=== PATIENT | female | born 1970 | race Caucasian/White ===

== ENCOUNTER 2016-10-07 00:39 | Emergency (ER) | payer MEDICARE, MEDICAID ==
[~2016-10-07] VITALS: Ht 160 cm; Wt 74.5 kg
[~2016-10-07 00:39] MED LIST: ALBU18HF INH; ALPR1TAB7 PO; BUPR100T15 PO; FLUT16SP NS; GLAT40SY SQ; KEN25CR EXT; LEVO5TAB29 PO; METH20TA PO; MONT10TA23 PO; OMEP40CA36 PO; ONDA8TAB10 PO; PREG50CA PO; SERT100T9 PO
[2016-10-07 00:46] VITALS: BP 126/77; PULSE 85; RESP 16; O2SAT 100
--- NOTE | 2016-10-07 00:50 | ED.REPORT ---
HPI-Extremity Problem Lower Date of Service Oct 07, 2016 ED Provider: Lucien Elam DO A 46 year old with a history of multiple sclerosis, knee surgery x4, and hepatitis C presents to the ED complaining of right knee pain. The pt tripped two days ago while carrying a bucket of paint and landed on her knee. She sustained a small abrasion that has not caused her a significant amount of pain. However the pt is now experiencing "sharp, shooting pain" radiating from the knee in both directions. Nursing Notes Stated Complaint: RIGHT KNEE PAIN, FELL 2 DAYS AGO Chief Complaint: Extremity Trauma Nursing Notes Reviewed: Yes Allergies: Coded Allergies: Sulfa (Sulfonamide Antibiotics) (Verified Allergy, Severe, TONGUE SWELLS, 10/07/16) iodine (Verified Allergy, Severe, 10/07/16) latex (Verified Allergy, Severe, PLASTIC BANDAIDS,REDNESS,HIVES, 10/07/16) Penicillins (Verified Allergy, Unknown, TONGUE SWELLING, 10/07/16) Scheduled Bupropion (Bupropion) 100 Mg Tablet 100 MG PO BID Fluticasone Propionate (Fluticasone Propionate Nasal) 16 Gm [place].susp 2 SPRAY NS BID Glatiramer Acetate (Copaxone) 40 Mg/1 Ml Syringe 40 MG SQ 3xweekly Levocetirizine Dihydrochloride (Xyzal) 5 Mg Tablet 5 MG PO DAILY Methylphenidate (Ritalin) 20 Mg Tablet 20 MG PO BID Montelukast (Montelukast) 10 Mg Tablet 10 MG PO HS Omeprazole (Omeprazole) 40 Mg Capsule.dr 40 MG PO DAILY Pregabalin (Lyrica) 50 Mg Capsule 50 MG PO BID Sertraline HCl (Sertraline) 100 Mg Tablet 100 MG PO DAILY Scheduled PRN Albuterol Sulfate (Ventolin HFA Inhaler) 200 Puff/18 Gm Inhaler 2 PUFF INH Q4 PRN PRN For Wheezing Alprazolam (Alprazolam) 1 Mg Tablet 0.5-1 MG PO TID PRN PRN For Anxiety Ondansetron ODT (Ondansetron ODT) 8 Mg Tab.rapdis 4-8 MG PO QID PRN PRN For Nausea Triamcinolone Acet (Triamcinolone Acetonide Cream) 1 Applic/0.25 Gm Cr 1 APPLIC EXT BID PRN PRN skin irritation General Time Seen by MD: 00:50 Chief Complaint Knee injury right Hx Obtained From: Patient Arrived By: Walk-in Onset Occurred: 2 days ago Symptom Duration: Since onset Recent Healthcare: Recent doctor visit, Recent hospitalization Similar Sx Previous: No Past Medical History Past Medical History Notes: PCP: Napoleon Mccormick Past Medical History Hx kidney stones Pneumonia Hep C multiple sclerosis hiatal hernia anxiety Reports: Asthma Past Surgical History Excision of left thigh seroma and cavity on 07/31/2016 Knee surgery x4 Kidney stone Tubal ligation Ablation 11 Laparocolotomies for endometrioses Reports: Cholecystectomy Family History Noncontributory Smoking History Current Some Day Smoker Social History Alcohol Use: Denies alcohol use Drug Use: Denies drug use Other Social History: Good social support, Local resident Ambulatory Status Independent Review of Systems Constitutional: Denies: Fever Musculoskeletal: Reports: Extremity pain, Joint pain, Denies: Back pain Skin: Denies Rash Neurologic: Denies: Headache Complete sys rev & neg: except as marked. Respiratory: Denies: Non-productive cough Cardiovascular: Denies: Chest pain GI: Denies: Abdominal pain Physical Exam Initial Vital Signs Vital Signs (First) Date Time Temp Pulse Resp B/P Pulse Ox O2 Delivery O2 Flow Rate FiO2 10/07/16 00:46 36.3 85 16 126/77 100 Room Air Initial VS: Reviewed Lower Extremity / Pelvis / MS: No deformity soft tissue swelling of right knee erythema of anterior right knee stable small superficial abrasion, does not appear infected Ankle / Foot: Atraumatic, Full range of motion General/Constitutional: Awake, Alert Respiratory / Chest: Atraumatic, Breath sounds NL, Breath sounds = bilat, No respiratory distress Cardiovascular: Heart rate NL, Regular rhythm, Heart sounds NL Skin: No rash, Warm, Dry Neurologic: Oriented X3, Speech NL, No motor deficits, No sensory deficits Head / Eyes: Atraumatic, Normocephalic, PERRL, EOMI ENT: Atraumatic, Airway patent, Mucous membranes moist Neck: Atraumatic, Supple, Full range of motion Abdomen: Atraumatic Back: Atraumatic, Full range of motion Upper Extremity / MS: Atraumatic, Full range of motion Psychiatric: Affect NL, Mood NL Interpretation & Diagnostics Pulse Oximetry Interpretation Pulse Oximetry Interpretation: 100% on room air Pulse Oximetry: Pulse Ox normal X-Ray Interpretation Xray Interpretation: no acute findings X-Ray Ordered: Knee right Interpretation / Wet Read by: Wet read ED physician Procedures Procedure Notes: Knee immobilizer 02:02 Machine Baster under my direct supervision Right knee Neurovascularly intact post procedure, condition improved, tolerated procedure well, pt stable Re-Eval/Medical Decision Source of Hx: Old records Re-Evaluation/Progress : Time of Eval: 01:43 Patient Status: Condition improved Re-Evaluation/Progress Note: Pt rechecked, who is feeling significantly better. The plan for discharge is discussed. The pt understands and agrees with the plan. All questions are addressed at this time. Counseled Regarding: Diagnosis, Lab results, Need for follow-up, When/why to return to ED Discharge & Departure Impression: Primary Impression: Knee sprain Encounter type: initial encounter Involved ligament of knee: unspecified ligament Laterality: right Qualified Code: S83.91XA - Sprain of unspecified site of right knee, initial encounter Additional Impression: Knee contusion Encounter type: initial encounter Laterality: right Qualified Code: S80.01XA - Contusion of right knee, initial encounter Disposition: Home Discharge Condition All VS Reviewed: Yes Condition: Stable Patient Instructions: Contusions in Adults (ED), Knee Sprain (ED), Crutch Instructions (ED) Additional Instructions: Your x-ray was reassuring. Take 1-2 Percocet every 6 hours as needed for severe pain. Do not drink, drive, or consume acetaminophen while taking the Percocet. Wear the knee immobilizer and use crutches until you are seen in follow up. Follow up with your primary care physician and orthopedist next week for further evaluation. Return to the emergency department if you develop any new or worsening symptoms. Referrals: Napoleon Mccormick MD (PCP) Guido Almazan MD Attestation Portions of this note were transcribed by Nishi Landaverde. I, Dr. Elam personally performed the history, physical exam and medical decision-making; I reviewed and confirmed the accuracy of the information in the transcribed note. Signed by: Scott Rodriguez, 10/07/2016 and 01:58. copies to: Napoleon Mccormick MD; Guido Almazan MD, Todd P DO Oct 07, 2016 00:50 NISHI LANDAVERDE Oct 07, 2016 01:03
[2016-10-07] MEDS ORDERED: oxyCODONE-Acetamin 5-325 mg Tablet PO ONE (00:55)
[2016-10-07] MEDS ORDERED: _oxyCODONE/APAP 5-325 mg Tablet PO PRN (01:45)
[2016-10-07 02:37] VITALS: BP 110/74; PULSE 80; RESP 18; O2SAT 98
--- NOTE | 2016-10-07 10:05 | DRSVH ---
PROCEDURE: X-RAY RIGHT KNEE, THREE VIEWS ([id number]) INDICATIONS: fall and painful knee, anterior medial TECHNIQUE: 3 views of the knee were acquired. COMPARISON: None. FINDINGS: Bones: No fractures or dislocations. No suspicious bony lesions. Soft tissues: No joint effusion. No suspicious soft tissue calcifications. IMPRESSION: No displaced fracture seen. If there is continued pain, followup exam or additional camila ging such as MRI or CT could be performed for further assessment. Dictated by: Yury Pineda Shaheed Interpreted: Mariya Nunes MD on 10/07/2016 at 10:04 Transcribed by: ANTONIA on 10/07/2016 at 10:04 Approved by: Mariya Nunes M.D. on 10/07/2016 at 16:28
== END 2016-10-07 02:35 | disposition home or self-care (01) ==
LOC: SED 00:39
DX: S83.91XA Sprain of unspecified site of right knee, initial encounter (principal); S80.01XA Contusion of right knee, initial encounter; W01.0XXA Fall on same level from slipping, tripping and stumbling without subsequent striking against object, initial encounter; Y93.89 Activity, other specified; Y92.9 Unspecified place or not applicable; Y99.8 Other external cause status; F17.200 Nicotine dependence, unspecified, uncomplicated; Z86.69 Personal history of other diseases of the nervous system and sense organs; Z86.19 Personal history of other infectious and parasitic diseases; Z90.49 Acquired absence of other specified parts of digestive tract; Z88.0 Allergy status to penicillin; Z88.2 Allergy status to sulfonamides; Z91.040 Latex allergy status; Z91.048 Other nonmedicinal substance allergy status

== ENCOUNTER 2016-11-06 11:33 | Emergency (ER) | payer MEDICARE, MEDICAID ==
[~2016-11-06] VITALS: Ht 160 cm; Wt 76.4 kg
[2016-11-06 11:50] VITALS: BP 123/79; PULSE 103; RESP 18; O2SAT 100
--- NOTE | 2016-11-06 11:59 | ED.REPORT ---
HPI-Abd Pain F 40 and Over Date of Service Nov 06, 2016 ED Provider: History of Present Illness: started 2 days ago. no belly piercing, has umblicus hernia. primary care is [facility]. washed it, tried saline and tree constantine oil. pain staying the same 03/27 Nursing Notes Stated Complaint: BELLY BUTTON PAIN/BLEEDING Chief Complaint: General Complaint Nursing Notes Reviewed: Yes Allergies: Coded Allergies: Sulfa (Sulfonamide Antibiotics) (Verified Allergy, Severe, TONGUE SWELLS, 11/06/16) iodine (Verified Allergy, Severe, 11/06/16) latex (Verified Allergy, Severe, PLASTIC BANDAIDS,REDNESS,HIVES, 11/06/16) Penicillins (Verified Allergy, Unknown, TONGUE SWELLING, 11/06/16) Scheduled Bupropion (Bupropion) 100 Mg Tablet 100 MG PO BID Fluticasone Propionate (Fluticasone Propionate Nasal) 16 Gm [place].susp 2 SPRAY NS BID Glatiramer Acetate (Copaxone) 40 Mg/1 Ml Syringe 40 MG SQ 3xweekly Levocetirizine Dihydrochloride (Xyzal) 5 Mg Tablet 5 MG PO DAILY Methylphenidate (Ritalin) 20 Mg Tablet 20 MG PO BID Montelukast (Montelukast) 10 Mg Tablet 10 MG PO HS Omeprazole (Omeprazole) 40 Mg Capsule.dr 40 MG PO DAILY Pregabalin (Lyrica) 50 Mg Capsule 50 MG PO BID Sertraline HCl (Sertraline) 100 Mg Tablet 100 MG PO DAILY Scheduled PRN Albuterol Sulfate (Ventolin HFA Inhaler) 200 Puff/18 Gm Inhaler 2 PUFF INH Q4 PRN PRN For Wheezing Alprazolam (Alprazolam) 1 Mg Tablet 0.5-1 MG PO TID PRN PRN For Anxiety Ondansetron ODT (Ondansetron ODT) 8 Mg Tab.rapdis 4-8 MG PO QID PRN PRN For Nausea Triamcinolone Acet (Triamcinolone Acetonide Cream) 1 Applic/0.25 Gm Cr 1 APPLIC EXT BID PRN PRN skin irritation General Time Seen by MD: 11:57 Chief Complaint Abdominal pain, Other Hx Obtained From: Patient Sudden in Onset?: No Location: : Periumbilical Past Medical History Past Medical History Notes: PCP: Napoleon Mccormick Past Medical History Hx kidney stones Pneumonia Hep C multiple sclerosis hiatal hernia anxiety Reports: Asthma Past Surgical History Excision of left thigh seroma and cavity on 07/31/2016 Knee surgery x4 Kidney stone Tubal ligation Ablation 11 Laparocolotomies for endometrioses Reports: Cholecystectomy Family History Noncontributory Smoking History Current Some Day Smoker Social History Alcohol Use: Denies alcohol use Drug Use: Denies drug use Other Social History: Good social support, Local resident Occupation live with daughter no work or school Ambulatory Status Independent Review of Systems Basic Review of Systems Eyes: Vision NL, No discharge Skin: No bruising, No rash, No itch Psychiatric: Normal thought content Physical Exam Vital Signs Vital Signs (First) Date Time Temp Pulse Resp B/P Pulse Ox O2 Delivery O2 Flow Rate FiO2 11/06/16 11:50 36.4 103 18 123/79 100 Room Air Initial VS: Reviewed, Vital signs normal Head / Eyes: Atraumatic, Normocephalic, PERRL ENT: Mucous membranes moist, Conjunctiva normal, No scleral icterus Neck: Supple, Non-tender, Full range of motion Lymphatic: No lymphadenopathy Extremities: Vascular intact, Neuro intact, No swelling, No tenderness Skin: Warm, Dry, No cyanosis Neurologic: Alert, Oriented, Nonfocal Psychiatric: Mood/affect normal, Behavior normal, Normal thought content General/Constitutional: Awake, Alert, No acute distress, Well appearing, Well developed, Well hydrated, Well nourished, Cooperative, Not toxic appearing Respiratory / Chest: Atraumatic, Breath sounds NL, Breath sounds = bilat, No respiratory distress, No rales Cardiovascular: Heart rate NL, Regular rhythm, Heart sounds NL, No gallop Abdomen: Atraumatic, Soft, Non-tender, McBurney's non-tender umbulicus is deep, about 2 cm, yellow discharge noted Back: Atraumatic, Inspection NL, Full range of motion, Painless range of motion Interpretation & Diagnostics Lab Results Interpretation Result Diagram: 11/06/16 1312 11/06/16 1312 Test 11/06/16 12:25 11/06/16 13:12 Hold Urine Received (Received) White Blood Count 6.3th/mm3 (3.8-10.1) Red Blood Count 4.64mil/mm3 (3.90-5.20) Hemoglobin 13.5g/dL (12.0-15.6) Hematocrit 41.0% (35.0-46.0) Mean Corpuscular Volume 88.4fL (81-100) Mean Corpuscular Hemoglobin 29.1pg (27.0-35.0) Mean Corpuscular Hemoglobin Concent 32.9% (32.0-37.0) Red Cell Distribution Width 13.8% (12.3-15.4) Platelet Count 197bil/L (150-400) Neutrophils (%) (Auto) 60.5% (40-74) Lymphocytes (%) (Auto) 30.0% (14-46) Monocytes (%) (Auto) 7.0% (4-12) Eosinophils (%) (Auto) 1.8% (0-5) Basophils (%) (Auto) 0.5% (0-3) Sodium Level 136mEq/L (134-144) Potassium Level 3.7mEq/L (3.5-5.2) Chloride Level 100mEq/L (97-108) Carbon Dioxide Level 21mmol/L (18-29) Blood Urea Nitrogen 16mg/dL (6-24) Creatinine 0.52mg/dL (0.57-1.00) Estimat Glomerular Filtration Rate 183mL/min (>59) Glucose Level 86mg/dL (60-99) Calcium Level 9.2mg/dL (8.5-10.1) Total Bilirubin 0.3mg/dL (0.0-1.2) Aspartate Amino Transf (AST/SGOT) 15U/L (0-50) Alanine Aminotransferase (ALT/SGPT) 15U/L (0-32) Alkaline Phosphatase 53U/L (25-150) Total Protein 6.4g/dL (6.4-8.4) Albumin 4.3g/dL (3.4-5.0) Hold Larios Top Tube Received (Received) US Focused non-OB Pelvis PROCEDURE: US HERNIA ABDOMINAL INDICATIONS: bleey buton pain and bleeding TECHNIQUE: Real-time focused scanning was performed of the abdomen, with image documentation. COMPARISON: None. FINDINGS: No periumbilical hernia or other ventral wall abnormality seen sonographically. IMPRESSION: No hernia. Dictated by: Yury GALINDO Interpreted: Daxa Piper MD on 11/06/2016 at 15:46 Re-Eval/Medical Decision Med Decision/Clinical Course 46 year old female presents for possible infection of umblicus. Labs are normal with ultrasound not identifying any abnormality around umblicus. No sign of appendicitis, constipation or peritonitis Discharge & Departure Primary Impression: Cellulitis, umbilical Disposition: Home Patient Instructions: Cellulitis (ED) Additional Instructions: Your white blood cell count is normal. The ultrasound does not show any hernia. The exam indicates you have a deep belly button. It may be a fungal infection infection or it may be a skin infection. Start diflucan 200 mg daily for 7 days. Use keflex 500 mg 3 times a day for 7 days. Avoid moisture in the navel. Use ibuprofen for any discomfort. Please follow with primary care for a recheck. REturn with any concerns. Referrals: Napoleon Mccormick MD (PCP) EDSupervising Provider for APC: Israel Tineo MD copies to: Napoleon Mccormick MD, Sue ARNP Nov 06, 2016 11:59
[2016-11-06 13:22] LABS: BASOPHILS % (AUTO) 0.5 % (0-3); EOSINOPHILS % (AUTO) 1.8 % (0-5); Mean Corpuscular Hemoglobin 29.1 pg (27.0-35.0); Mean Corpuscular Volume 88.4 fL (81-100); NEUTROPHILS % (AUTO) 60.5 % (40-74); Platelet Count 197 bil/L (150-400)
[2016-11-06 14:04] VITALS: BP 125/75; PULSE 94; RESP 15; O2SAT 98
--- NOTE | 2016-11-06 15:46 | DRSVH ---
PROCEDURE: US HERNIA ABDOMINAL INDICATIONS: Periumbilical pain and bleeding. TECHNIQUE: Real-time focused scanning was performed of the abdomen, with image documentation. COMPARISON: None. FINDINGS: Ultrasound was performed in the area of interest. No periumbilical hernia or other ventral wall abnormality seen sonographically. IMPRESSION: No ultrasound findings to explain periumbilical pain and bleeding. Dictated by: Yury GALINDO Interpreted: Daxa Piper MD on 11/06/2016 at 15:46 Transcribed by: MYRANDA on 11/06/2016 at 15:46 Approved by: Daxa Piper M.D. on 11/06/2016 at 22:08
== END 2016-11-06 14:02 | disposition home or self-care (01) ==
LOC: SED 11:33
DX: L03.316 Cellulitis of umbilicus (principal); J45.909 Unspecified asthma, uncomplicated; F17.200 Nicotine dependence, unspecified, uncomplicated; Z87.442 Personal history of urinary calculi; Z87.01 Personal history of pneumonia (recurrent); Z90.49 Acquired absence of other specified parts of digestive tract; Z88.2 Allergy status to sulfonamides; Z91.041 Radiographic dye allergy status; Z88.0 Allergy status to penicillin

== ENCOUNTER 2016-11-26 12:57 | Emergency (ER) | payer MEDICARE, MEDICAID ==
[~2016-11-26] VITALS: Ht 160 cm; Wt 76.4 kg
[2016-11-26 13:11] VITALS: BP 102/73; PULSE 87; RESP 16; O2SAT 100
[2016-11-26] MEDS ORDERED: Ondansetron 2 mg/mL 2 mL Inj ONE (13:33)
[2016-11-26 13:38] LABS: BASOPHILS % (AUTO) 0.1 % (0-3); EOSINOPHILS % (AUTO) 0.2 % (0-5); MONOCYTES % (AUTO) 2.2 % (4-12); Mean Corpuscular Hemoglobin 29.2 pg (27.0-35.0); Mean Corpuscular Volume 86.9 fL (81-100); NEUTROPHILS % (AUTO) 94.4 % (40-74); Platelet Count 230 bil/L (150-400)
[2016-11-26 13:52] LABS: Magnesium 2.1 mg/dL (1.6-2.6)
[2016-11-26] MEDS ORDERED: Ondansetron 2 mg/mL 2 mL Inj IVPUSH ONE ×2 (14:15→16:15)
--- NOTE | 2016-11-26 14:20 | ED.REPORT ---
HPI-Abd Pain F 40 and Over Date of Service Nov 26, 2016 ED Provider: Juan Diego Paige MD Pt is a 46 year old female with a hx of asthma and MS presenting to the ED via EMS complaining of nausea and vomiting onset around 0500 today, and a couple of syncopal episodes. Associated symptoms include diarrhea, diaphoresis, chills, subjective fever. Denies any rash. She reports that she was woken up by her symptoms this morning. She reports many episodes of vomiting and diarrhea. Pt was feeling fine until this morning. Pt was on antibiotics about 3 weeks ago for periumbilical cellulitis. Nursing Notes Stated Complaint: NAUSEA/VOMITING/SYNCOPAL EPISODE Chief Complaint: Female Abdominal Pain Nursing Notes Reviewed: Yes (Tencent, Dreamise not reconciled) Allergies: Coded Allergies: Sulfa (Sulfonamide Antibiotics) (Verified Allergy, Severe, TONGUE SWELLS, 11/26/16) iodine (Verified Allergy, Severe, 11/26/16) latex (Verified Allergy, Severe, PLASTIC BANDAIDS,REDNESS,HIVES, 11/26/16) Penicillins (Verified Allergy, Unknown, TONGUE SWELLING, 11/26/16) Scheduled Bupropion (Bupropion) 100 Mg Tablet 100 MG PO BID Fluticasone Propionate (Fluticasone Propionate Nasal) 16 Gm [place].susp 2 SPRAY NS BID Glatiramer Acetate (Copaxone) 40 Mg/1 Ml Syringe 40 MG SQ 3xweekly Levocetirizine Dihydrochloride (Xyzal) 5 Mg Tablet 5 MG PO DAILY Methylphenidate (Ritalin) 20 Mg Tablet 20 MG PO BID Montelukast (Montelukast) 10 Mg Tablet 10 MG PO HS Omeprazole (Omeprazole) 40 Mg Capsule.dr 40 MG PO DAILY Pregabalin (Lyrica) 50 Mg Capsule 50 MG PO BID Sertraline HCl (Sertraline) 100 Mg Tablet 100 MG PO DAILY Scheduled PRN Albuterol Sulfate (Ventolin HFA Inhaler) 200 Puff/18 Gm Inhaler 2 PUFF INH Q4 PRN PRN For Wheezing Alprazolam (Alprazolam) 1 Mg Tablet 0.5-1 MG PO TID PRN PRN For Anxiety Hydromorphone (Hydromorphone) 2 Mg Tablet 2-4 MG PO q4-6H PRN PRN Pain Loperamide (Loperamide) 2 Mg Tablet 2 MG PO Q4H PRN PRN For Diarrhea or Loose Stool Take one tablet after each episode of diarrhea up to 6 tabs in 24 hours Ondansetron ODT (Ondansetron ODT) 8 Mg Tab.rapdis 4-8 MG PO QID PRN PRN For Nausea Ondansetron ODT (Ondansetron ODT) 8 Mg Tab.rapdis 8 MG PO Q4H PRN PRN For Nausea Triamcinolone Acet (Triamcinolone Acetonide Cream) 1 Applic/0.25 Gm Cr 1 APPLIC EXT BID PRN PRN skin irritation General Time Seen by MD: 14:10 Chief Complaint Diarrhea severe, Vomiting severe Hx Obtained From: Patient, EMS Arrived By: Ambulance Sudden in Onset?: Yes Onset Occurred: 9 - 12 hours ago Symptom Duration: Since onset Progression since Onset: Constant Location: : Diffuse Quality: Painful Severity: Current: Severe Severity: Maximum: Severe Recent Healthcare: No recent doctor visit, No recent hospitalization Similar Sx Previous: No Past Medical History Past Medical History Notes: PCP: Napoleon Mccormick Past Medical History Hx kidney stones Pneumonia Hep C multiple sclerosis hiatal hernia anxiety Reports: Asthma Past Surgical History Excision of left thigh seroma and cavity on 07/31/2016 Knee surgery x4 Kidney stone Tubal ligation Ablation 11 Laparocolotomies for endometrioses Reports: Cholecystectomy Family History Noncontributory Smoking History Current Some Day Smoker Social History Alcohol Use: Denies alcohol use Drug Use: Denies drug use Other Social History: Good social support, Local resident Occupation live with daughter no work or school Ambulatory Status Independent Review of Systems Constitutional: Reports: Chills, Fever GI: Reports: Diarrhea, Nausea, Vomiting Complete sys rev & neg: except as marked. Skin: Reports Diaphoresis, Denies Rash Physical Exam Vital Signs Vital Signs (First) Date Time Temp Pulse Resp B/P Pulse Ox O2 Delivery O2 Flow Rate FiO2 11/26/16 13:11 36.9 87 16 102/73 100 Room Air Initial VS: Reviewed, Vital signs normal Head / Eyes: Atraumatic ENT: Mucous membranes moist, Conjunctiva normal, No scleral icterus Neck: Supple, Non-tender, Full range of motion Extremities: Vascular intact, Neuro intact, No swelling, No tenderness Skin: Warm, Dry, No cyanosis Neurologic: Alert, Oriented, Nonfocal Psychiatric: Mood/affect normal, Behavior normal, Normal thought content General/Constitutional: Awake, Alert Holding an emesis bag. Appears uncomfortable and mildly dehydrated. Respiratory / Chest: Breath sounds NL, Breath sounds = bilat, No respiratory distress, No rales, No rhonchi, No wheezing, No stridor Cardiovascular: Heart rate NL, Regular rhythm, Heart sounds NL, Peripheral circulation NL Abdomen: Soft, Non-tender, McBurney's non-tender, No guarding, No rebound, BS normoactive, No distention, No hernia, No palpable mass, No pulsatile mass Interpretation & Diagnostics Lab Results Interpretation Result Diagram: 11/26/16 1335 11/26/16 1335 Test 11/26/16 13:35 White Blood Count 13.4th/mm3 (3.8-10.1) Red Blood Count 5.34mil/mm3 (3.90-5.20) Hemoglobin 15.6g/dL (12.0-15.6) Hematocrit 46.4% (35.0-46.0) Mean Corpuscular Volume 86.9fL (81-100) Mean Corpuscular Hemoglobin 29.2pg (27.0-35.0) Mean Corpuscular Hemoglobin Concent 33.6% (32.0-37.0) Red Cell Distribution Width 13.5% (12.3-15.4) Platelet Count 230bil/L (150-400) Neutrophils (%) (Auto) 94.4% (40-74) Lymphocytes (%) (Auto) 2.8% (14-46) Monocytes (%) (Auto) 2.2% (4-12) Eosinophils (%) (Auto) 0.2% (0-5) Basophils (%) (Auto) 0.1% (0-3) Sodium Level 136mEq/L (134-144) Potassium Level 4.2mEq/L (3.5-5.2) Chloride Level 100mEq/L (97-108) Carbon Dioxide Level 20mmol/L (18-29) Blood Urea Nitrogen 20mg/dL (6-24) Creatinine 0.55mg/dL (0.57-1.00) Estimat Glomerular Filtration Rate 172mL/min (>59) Glucose Level 122mg/dL (60-99) Calcium Level 9.3mg/dL (8.5-10.1) Magnesium Level 2.1mg/dL (1.6-2.6) Total Bilirubin 0.5mg/dL (0.0-1.2) Aspartate Amino Transf (AST/SGOT) 25U/L (0-50) Alanine Aminotransferase (ALT/SGPT) 27U/L (0-32) Alkaline Phosphatase 60U/L (25-150) Total Protein 7.7g/dL (6.4-8.4) Albumin 4.7g/dL (3.4-5.0) Lipase 27U/L (13-60) Lab Results Interpretation: CBC mild leukocytosis CMP normal She did not provide a stool sample for testing Re-Eval/Medical Decision Med Decision/Clinical Course This is a 46-year-old female on immunosuppressants secondary to history of multiple sclerosis who presents complaining of vomiting and diarrhea. She reports multiple people in her family fall coming a little vomiting and diarrheal illness they were covering, but she got sick-but she has had more persistent and severe symptoms than they have. Reports abdominal cramping, multiple episodes of vomiting and diarrhea. She has not had a fever. She has no travel history, she was treated with antibiotics for umbilical cellulitis in recent months, but has no other risk factors for C. difficile. On exam she does appear uncomfortable, has complaints of cramping in her abdomen is soft and nontender. She is not febrile, she is not toxic. IV is placed and she received pain and nausea medicines with marked improvement. Abdomen remained soft and nontender. She has a mild leukocytosis that is nonspecific. However she started feeling much better and is able to take loperamide. She did not provide a stool sample in the department for testing, given she is on immunosuppressive I initially ordered a stool panel, given the history that multiple other family members have been ill with a vomiting and diarrheal illness, that makes C. difficile and other significant pathology less likely. She is responding to therapy here and is requesting discharge, I think this is reasonable. I am not finding indication for emergent indicate imaging or hospitalization or empiric antibiotic therapy at this time. The patient is being discharged with some ondansetron and loperamide, she would like a few pain medicine and requests hydromorphone that she has had before, several minute total of #10 tabs. Routine precautions and written and reviewed. Patient is discharged much improved condition. This times additional finding of an acute surgical, or acute bacterial etiology. The vomiting and diarrhea are needed nonspecific, and symptomatic therapy at home is appropriate. Source of Hx: Old records Re-Evaluation/Progress #1: Time of Eval: 16:10 Patient Status: Condition improved Re-Evaluation/Progress Note: Pt still nauseated and in pain but her symptoms are slightly improved. Re-Evaluation/Progress #2: Time of Eval: 17:00 Patient Status: Condition improved Re-Evaluation/Progress Note: Discussed plan for discharge. Pt understands and agrees. Differential Diagnosis: Negative: Abdominal aortic aneurysm, Acute abdominal pain, Acute coronary syndrome, Contusion abdominal wall, Ectopic preg ruptured, Ectopic , Esophageal rupture, Hepatitis, Myocardial infarction, Stab wound abdomen, Urinary tract infection Counseled Regarding: Diagnosis, Lab results, Need for follow-up, When/why to return to ED Discharge & Departure Primary Impression: Vomiting and diarrhea Disposition: Home Discharge Condition All VS Reviewed: Yes Condition: Improved Additional Instructions: 1. Rest. 2. Your blood tests were normal. 3. Take ondansetron 8 mg-lead dissolve underneath some-up to every 4 hours if needed for nausea. 4. Take loperamide 2 mg one tablet after each episode of diarrhea up to 6 tabs in 24 hours. 5. Take hydromorphone (Dilaudid) 2 mg 1-2 tabs up to every 6 hours if needed for pain/cramping. Use sparingly. Note this is a potent narcotic and causes drowsiness. No driving for at least 4-6 hours after taking. 6. Concerns are suspected to be improving over the next roughly 24-36 hours, return to the emergency department if no worsening symptoms occur. Referrals: Napoleon Mccormick MD (PCP) Scribe Attestation Portions of this note were transcribed by Deena Ashby. I, Dr. Paige personally performed the history, physical exam and medical decision-making; I reviewed and confirmed the accuracy of the information in the transcribed note. Signed by: Scott Cordero, 11/26/2016 at 0927. copies to: Napoleon Mccormick MD, Matthew F MD Nov 26, 2016 14:20 DEENA ASHBY Nov 26, 2016 14:29
[2016-11-26] MEDS: HYDROmorphone 0.5 mg/0.5 mL iSecure Syringe IVPUSH PRN ×2 (14:32→15:47)
[2016-11-26] MEDS ORDERED: 0.9% Sodium Chloride 1,000 ML IV ONE (14:35)
[2016-11-26] MEDS ORDERED: ProchlorPERazine 5 mg/mL 2 mL Inj IVPUSH ONE (14:35)
[2016-11-26] MEDS ORDERED: HYDROmorphone 0.5 mg/0.5 mL iSecure Syringe IVPUSH PRN (16:15)
[2016-11-26] MEDS ORDERED: LOPE2TAB32 PO (17:12)
[2016-11-26] MEDS ORDERED: ONDA8TAB10 PO (17:12)
[2016-11-26] MEDS ORDERED: HYDR2TAB28 PO (17:12)
[2016-11-26 17:35] VITALS: BP 107/60; PULSE 102; RESP 16; O2SAT 99
== END 2016-11-26 17:37 | disposition home or self-care (01) ==
LOC: EDBD 12:57 → EDUNIT# 12:57 → SED 12:57
DX: R11.10 Vomiting, unspecified (principal); R19.7 Diarrhea, unspecified; F17.200 Nicotine dependence, unspecified, uncomplicated; Z79.899 Other long term (current) drug therapy; Z88.0 Allergy status to penicillin; Z88.1 Allergy status to other antibiotic agents; Z91.040 Latex allergy status
CPT/HCPCS: 36415; 80053; 81025; 83690; 83735; 85025; 96361; 96374; 96375; 96376; 99285; J0780; J1170; J1200; J2405; J7030

== ENCOUNTER 2017-03-19 10:07 | Day surgery (SDC) | payer MEDICARE, MEDICAID ==
[~2017-03-19] VITALS: Ht 160 cm; Wt 76.9 kg
[2017-03-19] VITALS (12 sets, daily range): BP systolic 92–119; BP diastolic 44–59; PULSE 66–95; RESP 9–20; O2SAT 94–100
--- NOTE | 2017-03-19 08:22 | PCM.HPANE ---
Patient Data Surgeon Admitting Provider: Attending Provider:Magan Erazo MD Primary Care Physician:Napoleon Mccormick MD Other Provider:[facility] Reason for Visit Left Thigh Mass Ht/WT & BMI Height (Feet): 5 Height (Inches): 2 Weight (Kilograms): 77.1 Body Mass Index 31.00 Allergies Coded Allergies: Sulfa (Sulfonamide Antibiotics) (Verified Allergy, Severe, TONGUE SWELLS, 03/14/17) iodine (Verified Allergy, Severe, 03/14/17) latex (Verified Allergy, Severe, PLASTIC BANDAIDS,REDNESS,HIVES, 03/14/17) Penicillins (Verified Allergy, Unknown, TONGUE SWELLING, 03/14/17) Past Anesthesia History Anesthesia History: Denies:: Abnormal Airway, Anesthesia Reactions (had vomiting post epidural), Difficult Intubation, Fam Anesthesia Reaction, Fam Malignant Hypertherm, Malignant Hyperthermia Diabetes History Hx Diabetes?: No MRSA MRSA: No Medications Hypertension Medication: No Home Meds Incl Beta Sofya: No Reported Medications Levocetirizine Dihydrochloride (Xyzal)5 Mg Tablet5 Mg PO 03/14/17 Albuterol Sulfate (Ventolin HFA Inhaler)200 Puff/18 Gm Inhaler1 Puff INH Q4 PRN For Wheezing #1 INHALER Ref 0 03/14/17 Triamcinolone Acet (Triamcinolone Acetonide Cream)1 Applic/0.25 Gm Cr1 Applic EXT BID #60 GM Ref 0 03/14/17 Sertraline HCl (Sertraline)100 Mg Sygqmb613 Mg PO DAILY 30 Days Ref 0 03/14/17 Dextroamphetamine/Amphetamine (Adderall)10 Mg Tyyfrg14 Mg PO DAILY Ref 0 03/14/17 Montelukast 10 Mg Cawwby44 Mg PO HS Ref 0 03/14/17 Fluticasone Propionate (Flonase Allergy Relief)50 Mcg/Actuation [place].susp9.9 Ml NS 03/14/17 Cyclobenzaprine 5 Mg Tablet5 Mg PO TID PRN Spasm 03/14/17 Glatiramer Acetate (Copaxone)40 Mg/1 Ml Gcyouyq09 Mg SQ 03/14/17 Bupropion 100 Mg Dgqogo870 Mg PO BID Ref 0 03/14/17 Alprazolam 1 Mg Tablet1 Mg PO TID PRN For Anxiety Ref 0 03/14/17 Discontinued Reported Medications Esomeprazole Magnesium 40 Mg Capsule.dr40 Mg PO 03/14/17 Levocetirizine Dihydrochloride (Xyzal)5 Mg Tablet5 Mg PO DAILY 07/29/16 Albuterol Sulfate (Ventolin HFA Inhaler)200 Puff/18 Gm Inhaler2 Puff INH Q4 PRN For Wheezing #1 INHALER Ref 0 07/29/16 Triamcinolone Acet (Triamcinolone Acetonide Cream)1 Applic/0.25 Gm Cr1 Applic EXT BID PRN skin irritation #60 GM Ref 0 07/29/16 Sertraline HCl (Sertraline)100 Mg Fxxdbh009 Mg PO DAILY 30 Days Ref 0 07/29/16 Methylphenidate (Ritalin)20 Mg Cmfhkh83 Mg PO BID Ref 0 07/29/16 Omeprazole 40 Mg Capsule.dr40 Mg PO DAILY Ref 0 07/29/16 Montelukast 10 Mg Rsscru38 Mg PO HS Ref 0 07/29/16 Pregabalin (Lyrica)50 Mg Ywmgiqx16 Mg PO BID 30 Days Ref 0 07/29/16 Fluticasone Propionate (Fluticasone Propionate Nasal)16 Gm [place].susp2 [place] NS BID #16 GM Ref 0 07/29/16 Glatiramer Acetate (Copaxone)40 Mg/1 Ml Kqcwcst56 Mg SQ 3xweekly 07/29/16 Bupropion 100 Mg Isbpub438 Mg PO BID Ref 0 07/29/16 Alprazolam 1 Mg Tablet0.5-1 Mg PO TID PRN For Anxiety Ref 0 07/29/16 Discontinued Scripts Hydromorphone 2 Mg Tablet2-4 Mg PO q4-6H PRN Pain #10 TABLET Ref 0 Prov:Juan Diego Paige MD 11/26/16 Loperamide 2 Mg Tablet2 Mg PO Q4H PRN For Diarrhea or Loose Stool #10 TABLET Take one tablet after each episode of diarrhea up to 6 tabs in 24 hours Prov:Juan Diego Paige MD 11/26/16 Ondansetron ODT 8 Mg Tab.rapdis8 Mg PO Q4H PRN For Nausea #10 TABLET Prov:Juan Diego Paige MD 11/26/16 Ondansetron ODT 8 Mg Tab.rapdis4-8 Mg PO QID PRN For Nausea #20 TABLET Prov:Phillip Dickens MD 08/09/16 History History of ENT Problems?: Yes HEENT History: Positive for:: Sinus Problem (environmental allergies) Denies:: Abnormal Airway Cataracts Difficult Intubation Dysphagia Glaucoma Hearing Problem TMJ Denture Type: None Teeth Condition: Within Normal Limits Hx of Heart Problems?: No Cardiovascular History: Denies:: AICD Abdominal Aortic Aneurism Atrial Fibrillation Cardiac Surgery Chest Pain Congestive Heart Failure Coronary Artery Disease Edema Heart Murmur Hypertension Irregular Heartbeat Pacemaker Rheumatic Fever Thrombophlebitis Valvular Heart Disease Hx of Respiratory Problem?: Yes Respiratory History: Positive for:: Asthma Cough (chronic associated with asthma) Pneumonia (past hx of) Use of Inhalers / NEBS (Ventilin) Denies:: COPD Chest Surgery Dyspnea Emphysema Hemoptysis Oxygen Administration Pulmonary Embolism Tuberculosis Use of C-PAP Machine Hx Neurologic Problems?: Yes Neurological History: Positive for:: Dizziness Headaches Multiple Sclerosis (last neuro note 09/2015) Denies:: Alzheimer's Disease CVA Dementia Parkinson's Disease Seizures TIA Hx of GI Problems?: Yes Hx of Problems?: Yes Genitourinary History: Positive for:: Kidney Stones ( non obstructing- seen in ED 07/05/16) Denies:: HX of Hemodialysis Urinary Tract Infection HX of Peritoneal Dialysis: No Female Hx: Denies:: Currently Problems with Breasts? Skin History: Denies:: History Skin Disorders? Pressure Ulcers Hx Musculoskeletal Problems?: Yes Musculoskeletal History: Positive for:: Back Injury (back pain, neuropathy) Musculoskeletal Trauma (left thigh seroma current admission problem) Denies:: Degenerative Joint Fibromyalgia Joint Replacement Myasthenia Gravis Osteoarthritis Rheumatoid Arthritis Systemic Lupus Hx of Psycho/Social Problems?: Yes Psycho Social History: Positive for:: Anxiety Denies:: Bipolar Disorder Hx Depression Suicide Attempt (04/2014 ACCIDENTAL XANAX OD) Hx Surgeries?: Yes (BARNEY, UTERINE ABLASION, LITHOTRIPSY, LAP'S, KNEES, THIGH, FOOT) Hx Any Other Health Problems?: Yes Other History: Positive for:: Hospitalization (KIDNEY STONE) Denies:: Cancer Endocrine Disease Thyroid Disease History Blood Transfusions: Positive for:: Accept Blood Products? Denies:: Blood Transfusions Hx Diabetes: No Hx Alcohol Use: NoHx Substance Use: No Smoking Status: Current Some Day Smoker Have You Smoked inLast 12 mo: Yes (QUIT A FEW MONTHS AGO) Stop/Bang S-Snoring: Do You Snore Loudly: No T-Tired: feel tired, fatigued: No O-Obsered: Observed not breath: No P-Blood Pressure: treated: No B- Body Mass Index > 35 kg/m2: No A- Age over 50: No N- Neck Large Circumference: No G- Gender Male: No MELLO Total Score: 0 MELLO Risk Assessment: Low Risk, <3 Yes Risk Assessment Category Category 1A: Patient has history of documented sleep apnea, and HAS NOT received any narcotic, sedative or anesthesia administration during this stay. Category 1B: Patient has history of documented sleep apnea, and HAS received any narcotic , sedative or anesthesia administration during this stay Category 2: Patient has SUSPECTED Obstructive Sleep Apnea, and HAS received any narcotic , sedative or anesthesia administration during this stay. Category 3: Patient has SUSPECTED Obstructive Sleep Apnea and HAS NOT received narcotic, sedative or anesthesia administration during this stay. Category 4: Outpatient in Procedural Areas with known sleep apnea or who screen positive for High Risk via the STOP/BANG questionnaire. Exam Exam General Appearance: Alert, Oriented X3, Cooperative, No Acute Distress HEENT/AIRWAY: MP 1 Lungs: Normal Air Movement Heart: Exam Unremarkable Plan Impression Patient chart reviewed, patient interviewed and anesthestic plan with risks, benefits, and alternatives discussed, and informed consent obtained. NPO per Anesth. Guidelines: Yes ASA Physical Status: ASA2 Mod Systemic Disease Anesthetic Plan: GA Bene/Risks/Altern/Consents: Yes HP Complete Prior to Induction: Yes Stanley Whittington MD Mar 19, 2017 08:22
[~2017-03-19 10:07] MED LIST changes: +CYCL5TAB PO; +Clindamycin 900 mg/50 mL D5W IV SCH; +DEXT10TA8 PO; +ESOM40CA53 PO; -FLUT16SP NS; +FLUT9.9S NS; -METH20TA PO; -OMEP40CA36 PO; -ONDA8TAB10 PO; -PREG50CA PO
[2017-03-19] MEDS ORDERED: fentaNYL-PF 50 mCg/mL 2 mL Inj ONE (10:08)
[2017-03-19] MEDS ORDERED: Ondansetron 2 mg/mL 2 mL Inj ONE (10:08)
[2017-03-19] MEDS ORDERED: Dexamethasone 4 mg/mL Inj ONE (10:08)
[2017-03-19] MEDS ORDERED: Propofol 10,000 mCg/mL 20 mL Inj ONE (10:08)
[2017-03-19] MEDS ORDERED: Clindamycin 900 mg/50 mL D5W Premix IV ONE (10:20)
[2017-03-19] MEDS: Lactated Ringer's 1,000 ML IV SCH ×2 (11:06→11:32)
[2017-03-19] MEDS ORDERED: Bupivacaine-MPF 0.5% 30 mL Inj INFILTRATE ONE (11:32)
[2017-03-19] MEDS ORDERED: Phenylephrine 10,000 mCg/mL Inj IVPUSH PRN (11:50)
[2017-03-19] MEDS ORDERED: Lactated Ringer's 1,000 ML IV SCH (11:50)
[2017-03-19] MEDS ORDERED: Dexamethasone 4 mg/mL Inj IVPUSH PRN (11:50)
[2017-03-19] MEDS ORDERED: MetoCLOpramide 5 mg/mL 2 mL Inj IVPUSH PRN (11:50)
[2017-03-19] MEDS ORDERED: Ondansetron 2 mg/mL 2 mL Inj IVPUSH PRN (11:50)
[2017-03-19] MEDS ORDERED: EPHEDrine Sulfate 50 mg/mL Inj IVPUSH PRN (11:50)
[2017-03-19] MEDS ORDERED: Lactated Ringer's 500 ML IV PRN (11:50)
[2017-03-19] MEDS ORDERED: Labetalol 5 mg/mL 4 mL Inj IV PRN (11:50)
[2017-03-19] MEDS ORDERED: Albuterol-Ipratropium 3 mL Inhalation Solution NEB PRN (11:50)
[2017-03-19] MEDS ORDERED: HYDROmorphone 1 mg/mL Inj IVPUSH PRN (11:50)
[2017-03-19] MEDS ORDERED: HYDROcodone-APAP 5-325 mg Tablet PO PRN (12:35)
[2017-03-19] MEDS: fentaNYL-PF 50 mCg/mL 2 mL Inj IVPUSH PRN ×2 (12:38→13:09)
--- NOTE | 2017-03-19 12:42 | PCM.ANEP1 ---
Post Anesthesia PACU Phase 1 Assessment Vital Signs Vital Signs Date Time Temp Pulse Resp B/P Pulse Ox O2 Delivery O2 Flow Rate FiO2 03/19/17 12:28 37.2 18 93/55 96 Room Air 03/19/17 10:30 36.5 83 20 119/58 95 Room Air Anesthetic Administered: GA Level of Alertness: Awake, talking ERAZO's with Equal Strength: Yes Pain: No Nausea or Vomiting: No CV Function & Hydration Stable: Yes Airway Device: none Oxygen Delivery: Room Air Lungs: Normal Air Movement Dermatome Level: Full Sensation PACU Phase 2 Assessment Complications: No Follow up Care: No Patient Instructions Provided: N/A Stanley Whittington MD Mar 19, 2017 12:42
[2017-03-19] MEDS ORDERED: Lactated Ringer's 1,000 ML IV ONE (13:18)
--- NOTE | 2017-03-21 15:00 | PATH ---
SURGICAL PATHOLOGY Attending Physician:Magan Erazo CASE STATUS: Signed Out PATIENT NAME: GEENA HARVEY PID: [id number] : 1970 DATE COLLECTED:03/19/2017 00:00 SPECIMEN: Soft Tissue Mass, Biopsy CLINICAL HISTORY: LEFT THIGH MASS/SEROMA 1). LEFT THIGH MASS FINAL DIAGNOSIS: 1.LEFT THIGH MASS/SEROMA, EXCISION: - FIBROMEMBRANOUS TISSUE AND ADIPOSE TISSUE WITH PRIOR PROCEDURE SITE CHANGES. - NEGATIVE FOR NEOPLASM. ICD10 M79 GROSS DESCRIPTION: The specimen is received in one formalin filled container labeled with the patient's name, sublabeled "left thigh mass" and consists of multiple yellow-esteves portions of soft tissue which aggregate to 5.5 x 5.0 x 1.5 CM. The specimen is inked blue. 4 retail sales representative sections are submitted in 2 cassettes. 03/20/2017DC MICRO DESCRIPTION: See diagnosis. ICD-9 CODES: CPT CODES: 1: 32073 Electronically Signed Out Juan Miguel Lara MD [facility] [address], [place] [address] Technical component performed at [facility], [address] [place] [address] Ave[address], [place], [address]
--- NOTE | 2017-03-24 10:06 | OP ---
[address] [address] OPERATIVE REPORT PATIENT: GEENA HARVEY : 1970 MR#: [id number] ADMIT: 03/19/2017 JOB ID: [id number] DATE OF SURGERY: 03/19/2017 PREOPERATIVE DIAGNOSIS(ES): Left thigh mass, possible seroma. POSTOPERATIVE DIAGNOSIS(ES): Left thigh mass. Scar tissue and adipose tissue. PROCEDURE: Excision of left thigh mass, superficial subcutaneous, 3 cm in diameter. SURGEON: Magan Erazo MD BATCH ROLLER OPERATOR: None. ANESTHESIA: General anesthesia. COMPLICATIONS: None apparent. SPECIMEN: Left thigh mass to Pathology. ESTIMATED BLOOD LOSS: 20 cc. DRAINS: #10 round KAL drain, one in the surgical site. INDICATIONS FOR PROCEDURE: This is a 47-year-old, female patient, who is status post a fall from a ladder in 2016. The patient had a hematoma that eventually developed into a seroma. I excised this in the past. The patient had continued contour irregularity in this area. The patient had an ultrasound in the past demonstrating seroma, which I then excised. The patient continued to have some contour irregularity. At this point, exploration of this area is indicated with excision of the underlying mass. PROCEDURES AND FINDINGS: The patient was identified in the preoperative area. Surgical site was marked. With the patient in sitting position, I marked the location with the mass. I also marked the location of the mass with the patient lying down. The patient was then taken back to the operating room and placed supine on the operating table. Appropriate time-outs were taken. General anesthesia was induced smoothly. The patient was then prepped and draped in the usual sterile manner. It was noted that the marked mass lies just anterior and slightly inferior to her previous incision for seroma. The inferior aspect of her previous incision was opened. I extended the incision approximately another 2 cm inferiorly. Incision was deepened down into the subcutaneous tissue. I then traced the patient's previous scar down to the old surgical site. There was no seroma noted. At this point, I excised a small disk of adipose tissue, approximately 3 cm to 4 cm in diameter, and 1 cm in thickness in correspondence to the patient's deformity. This was passed off to Pathology as a specimen. Hemostasis was obtained with electrocautery. A small #10 KAL drain was then placed into the surgical site, exiting through a separate lateral stab incision. The incision was then reapproximated first with a layer of 3-0 Monocryl deep dermal suture, followed by 4-0 Monocryl running subcuticular suture. The patient tolerated the procedure well. Needle count, sponge count, and instrument counts were correct at the end of the procedure. The patient was placed into an [place] bandage compressing the surgical site. The patient was extubated and transported to recovery in stable condition.
== END 2017-03-19 23:59 | disposition home or self-care (01) ==
LOC: SAS 10:07
PROVIDERS: ATTEND Plastic Surgery
DX: L90.5 Scar conditions and fibrosis of skin (principal); L76.34 Postprocedural seroma of skin and subcutaneous tissue following other procedure; R22.42 Localized swelling, mass and lump, left lower limb; G35 Multiple sclerosis; J45.909 Unspecified asthma, uncomplicated; K58.9 Irritable bowel syndrome, unspecified; G47.33 Obstructive sleep apnea (adult) (pediatric); F41.9 Anxiety disorder, unspecified; F17.210 Nicotine dependence, cigarettes, uncomplicated; Z87.442 Personal history of urinary calculi
CPT/HCPCS: 27337; J1100; J1170; J1885; J2250; J2405; J2765; J3010; J3490; J7120

== ENCOUNTER 2017-03-21 22:10 | Emergency (ER) | payer MEDICARE, MEDICAID ==
[~2017-03-21] VITALS: Ht 160 cm; Wt 77.3 kg
[~2017-03-21 22:10] MED LIST changes: -Clindamycin 900 mg/50 mL D5W IV SCH; -ESOM40CA53 PO
[2017-03-21 22:14] VITALS: BP 144/91; PULSE 100; RESP 18; O2SAT 99
== END 2017-03-21 22:45 | disposition left against medical advice (07) ==
LOC: SED 22:10
DX: T81.4XXA Infection following a procedure, initial encounter (principal); Z53.21 Procedure and treatment not carried out due to patient leaving prior to being seen by health care provider

== ENCOUNTER 2017-03-22 13:33 | Emergency (ER) | payer MEDICARE, MEDICAID ==
[~2017-03-22] VITALS: Ht 160 cm; Wt 77.3 kg
[2017-03-22 13:47] VITALS: BP 115/68; PULSE 100; RESP 20; O2SAT 99
--- NOTE | 2017-03-22 15:09 | ED.REPORT ---
HPI-Rash / Abscess Date of Service Mar 22, 2017 ED Provider: Israel Tineo MD A 47 year old female with a history of MS, hepatitis C, anxiety and recent mass removal presents to the ED complaining of a partially removed KAL drain on her outer left thigh. The pt had a mass removed on 03/19/2017 and a drain was placed. The drain was caught on a knob today. The stitches were pulled and the drain became partially removed. The drain is now unable to hold air and will not drain. The pt is requesting that the drain be replaced and secured. Nursing Notes Stated Complaint: DRAIN FALLING OUT OF LEFT LEG Chief Complaint: Extremity Trauma Nursing Notes Reviewed: Yes Allergies: Coded Allergies: Sulfa (Sulfonamide Antibiotics) (Verified Allergy, Severe, TONGUE SWELLS, 03/21/17) iodine (Verified Allergy, Severe, 03/21/17) latex (Verified Allergy, Severe, PLASTIC BANDAIDS,REDNESS,HIVES, 03/21/17) Penicillins (Verified Allergy, Unknown, TONGUE SWELLING, 03/21/17) Scheduled Bupropion (Bupropion) 100 Mg Tablet 100 MG PO BID Dextroamphetamine/Amphetamine (Adderall) 10 Mg Tablet 10 MG PO DAILY Montelukast (Montelukast) 10 Mg Tablet 10 MG PO HS Sertraline HCl (Sertraline) 100 Mg Tablet 100 MG PO DAILY Triamcinolone Acet (Triamcinolone Acetonide Cream) 1 Applic/0.25 Gm Cr 1 APPLIC EXT BID Scheduled PRN Albuterol Sulfate (Ventolin HFA Inhaler) 200 Puff/18 Gm Inhaler 1 PUFF INH Q4 PRN PRN For Wheezing Alprazolam (Alprazolam) 1 Mg Tablet 1 MG PO TID PRN PRN For Anxiety Cyclobenzaprine (Cyclobenzaprine) 5 Mg Tablet 5 MG PO TID PRN PRN Spasm Miscellaneous Medications Fluticasone Propionate (Flonase Allergy Relief) 50 Mcg/Actuation [place].susp 9.9 ML NS Glatiramer Acetate (Copaxone) 40 Mg/1 Ml Syringe 40 MG SQ Levocetirizine Dihydrochloride (Xyzal) 5 Mg Tablet 5 MG PO General Time Seen by MD: 15:09 Chief Complaint Other (Dislodged drain) Hx Obtained From: Patient Arrived By: Walk-in Onset Occurred: 5 - 8 hours ago Symptom Duration: Since onset Recent Healthcare: Recent doctor visit Similar Sx Previous: No Past Medical History Past Medical History Notes: PCP: Napoleon Mccormick Past Medical History Hx kidney stones Pneumonia Hep C multiple sclerosis hiatal hernia anxiety Reports: Asthma Past Surgical History Excision of left thigh seroma and cavity on 07/31/2016 Knee surgery x4 Kidney stone Tubal ligation Ablation 11 Laparocolotomies for endometrioses Mass removal 03/2017 Reports: Cholecystectomy Family History Noncontributory Smoking History Current Some Day Smoker Social History Alcohol Use: Denies alcohol use Drug Use: Denies drug use Other Social History: Good social support, Local resident Occupation live with daughter no work or school Ambulatory Status Independent Review of Systems Respiratory: Denies: Non-productive cough, Shortness of breath Cardiovascular: Denies: Chest pain GI: Denies: Abdominal pain, Vomiting Musculoskeletal: Denies: Back pain, Neck pain Skin: Denies Rash Complete sys rev & neg: except as marked. Physical Exam Initial Vital Signs Vital Signs (First) Date Time Temp Pulse Resp B/P Pulse Ox O2 Delivery O2 Flow Rate FiO2 03/22/17 13:47 36.9 100 20 115/68 99 Room Air Initial VS: Reviewed General/Constitutional: Awake, Alert Skin: Color NL, Warm, Dry Head / Eyes: Atraumatic, Normocephalic, PERRL, EOMI ENT: Atraumatic, Airway patent, Mucous membranes moist Respiratory / Chest: Atraumatic, No respiratory distress Cardiovascular: Heart rate NL, Regular rhythm Upper Extremity / MS: Atraumatic, Full range of motion Lower Extremity / Pelvis / MS: Full range of motion, Neurologic intact, Vascular intact drain on left lateral thigh clean, dry and appears non-infected with a 10 cm vertical incision above it drain site is not inflamed, red, no purulent drainage Neurologic: Oriented X3, Speech NL, No motor deficits, No sensory deficits Neck: Atraumatic, Supple, Full range of motion Abdomen: Atraumatic Back: Atraumatic, Full range of motion Psychiatric: Affect NL, Mood NL Procedures Procedure Notes: KAL tube replacement-at the initiation of the procedure the tube was already in the wound but it had been displaced a few centimeters and would no longer hold a seal as one of the tube fenestrations was at the wound edge. 15:43 ED physician informed consent provided by pt, time-out performed, hand hygiene observed, sterile stand technique Chlorhexidine Lidocaine outer left thigh Prior to reinsertion the tube was thoroughly cleansed with chlorhexidine as was the skin insertion site. tube easily reinserted 3 cm and secured with 1 stitch of 4O Nylon drain placed, dressing applied, no complications, condition improved, tolerated procedure well, pt stable Re-Eval/Medical Decision Source of Hx: Old records Re-Evaluation/Progress #1: Time of Eval: 15:43 Patient Status: Condition improved Re-Evaluation/Progress Note: Pt rechecked and drain is replaced. The diagnosis and plan for discharge was discussed. The pt understands and agrees with the plan. All questions are addressed at this time. Re-Evaluation/Progress #2: Time of Eval: 16:03 Consultation : Referral / Consult Name: Magan Erazo MD Counseled Regarding: Diagnosis, Need for follow-up, When/why to return to ED Discharge & Departure Impression: Primary Impression: Broken Jake-Abdalla drain Disposition: Home Discharge Condition All VS Reviewed: Yes Condition: Stable Additional Instructions: Thank you for allowing us to be a part of your care. Call Dr. Erazo on Friday to arrange a follow up appointment for further evaluation. Return to the emergency department if you develop any new or worsening symptoms such as inability to drain, fever, swelling, redness, or concerning discharge. Referrals: Napoleon Mccormick MD (PCP) Magan Erazo MD Scribe Attestation Portions of this note were transcribed by Nishi Landavrede. I, Dr. Tineo personally performed the history, physical exam and medical decision-making; I reviewed and confirmed the accuracy of the information in the transcribed note. copies to: Magan Erazo MD; Napoleon Mccormick MD, Kirk H MD Mar 22, 2017 15:09 NISHI LANDAVERDE Mar 22, 2017 15:18
[2017-03-22 15:55] VITALS: BP 113/60; PULSE 92; RESP 16; O2SAT 92
== END 2017-03-22 15:56 | disposition home or self-care (01) ==
LOC: SED 13:33
DX: T85.698A Other mechanical complication of other specified internal prosthetic devices, implants and grafts, initial encounter (principal); Y83.8 Other surgical procedures as the cause of abnormal reaction of the patient, or of later complication, without mention of misadventure at the time of the procedure; Y93.89 Activity, other specified; Y92.009 Unspecified place in unspecified non-institutional (private) residence as the place of occurrence of the external cause; Y99.8 Other external cause status; J45.909 Unspecified asthma, uncomplicated; F17.200 Nicotine dependence, unspecified, uncomplicated; Z87.39 Personal history of other diseases of the musculoskeletal system and connective tissue; Z87.448 Personal history of other diseases of urinary system; Z90.49 Acquired absence of other specified parts of digestive tract; Z88.2 Allergy status to sulfonamides; Z88.0 Allergy status to penicillin

== ENCOUNTER 2017-03-29 19:28 | Emergency (ER) | payer MEDICARE, MEDICAID ==
[~2017-03-29] VITALS: Ht 160 cm; Wt 77.3 kg
[2017-03-29 19:31] VITALS: BP 125/82; RESP 16; O2SAT 99
--- NOTE | 2017-03-29 20:30 | ED.REPORT ---
HPI-General Illness Date of Service Mar 29, 2017 ED Provider: Lakhwinder Shannon DO Pt is a 47 year old female with a hx of asthma presenting to the ED post recent thigh surgery presenting to the ED complaining of throat pain onset today. Associated symptoms include fever (101), chills, body aches, headache, and a cough. Denies dysuria, frequent urination. She states that she had a mass in her leg due to falling off a ladder which was why she needed the leg surgery 10 days ago. Nursing Notes Stated Complaint: FEVER AND SPOTS AFTER SURGERY Chief Complaint: ENT & Mouth Nursing Notes Reviewed: Yes Allergies: Coded Allergies: Sulfa (Sulfonamide Antibiotics) (Verified Allergy, Severe, TONGUE SWELLS, 03/29/17) iodine (Verified Allergy, Severe, 03/29/17) latex (Verified Allergy, Severe, PLASTIC BANDAIDS,REDNESS,HIVES, 03/29/17) Penicillins (Verified Allergy, Unknown, TONGUE SWELLING, 03/29/17) Scheduled Bupropion (Bupropion) 100 Mg Tablet 100 MG PO BID Dextroamphetamine/Amphetamine (Adderall) 10 Mg Tablet 10 MG PO DAILY Montelukast (Montelukast) 10 Mg Tablet 10 MG PO HS Sertraline HCl (Sertraline) 100 Mg Tablet 100 MG PO DAILY Triamcinolone Acet (Triamcinolone Acetonide Cream) 1 Applic/0.25 Gm Cr 1 APPLIC EXT BID Scheduled PRN Albuterol Sulfate (Ventolin HFA Inhaler) 200 Puff/18 Gm Inhaler 1 PUFF INH Q4 PRN PRN For Wheezing Alprazolam (Alprazolam) 1 Mg Tablet 1 MG PO TID PRN PRN For Anxiety Cyclobenzaprine (Cyclobenzaprine) 5 Mg Tablet 5 MG PO TID PRN PRN Spasm Miscellaneous Medications Fluticasone Propionate (Flonase Allergy Relief) 50 Mcg/Actuation [place].susp 9.9 ML NS Glatiramer Acetate (Copaxone) 40 Mg/1 Ml Syringe 40 MG SQ Levocetirizine Dihydrochloride (Xyzal) 5 Mg Tablet 5 MG PO General Time Seen by MD: 20:25 Chief Complaint Sore throat Hx Obtained From: Patient Arrived By: Walk-in Sudden in Onset?: Yes Onset Occurred: Just prior to arrival Symptom Duration: Since onset Quality: Painful Severity: Current: Moderate Severity: Maximum: Moderate Recent Healthcare: No recent hospitalization, Previous surgery Similar Sx Previous: No Past Medical History Past Medical History Notes: PCP: Napoleon Mccormick Past Medical History Hx kidney stones Pneumonia Hep C multiple sclerosis hiatal hernia anxiety Reports: Asthma Past Surgical History Excision of left thigh seroma and cavity on 07/31/2016 Knee surgery x4 Kidney stone Tubal ligation Ablation 11 Laparocolotomies for endometrioses Mass removal 03/2017 Reports: Cholecystectomy Family History Noncontributory Smoking History Current Some Day Smoker Social History Alcohol Use: Denies alcohol use Drug Use: Denies drug use Other Social History: Good social support, Local resident Occupation live with daughter no work or school Ambulatory Status Independent Review of Systems Full Review of Systems Constitutional: Reports: Chills, Fever Ears / Nose / Throat: Reports: Throat pain Respiratory: Reports: Non-productive cough Female: Denies: Dysuria, Urinary frequency Neurologic: Reports: Headache Complete sys rev & neg: except as marked. Physical Exam Vital Signs Vital Signs Date Time Temp Pulse Resp B/P Pulse Ox O2 Delivery O2 Flow Rate FiO2 03/29/17 19:31 37.0 103 16 125/82 99 Room Air Initial VS: Reviewed General/Constitutional: Well-developed, Well-nourished Head / Eyes: Atraumatic, Normocephalic, PERRL Respiratory: Breath sounds normal, Clear to auscultation, No respiratory distress Cardiovascular: Regular rate & rhythm, Heart sounds normal, Intact distal pulses Extremities: Vascular intact, Neuro intact, No swelling, No tenderness Neurologic: Alert, Oriented, Nonfocal Psychiatric: Mood/affect normal, Behavior normal, Normal thought content ENT: Atraumatic, Airway patent, Mucous membranes moist Exudate right tonsil. scattered bilat anterior cervical chain lymphadnopathy, R>L Neck: Atraumatic, Supple Lymphadenopathy Skin: Warm, Dry, Intact Well healed incision left hip. No erythema or drainage. Interpretation & Diagnostics Rapid strep test negative, Denali negative. Lab Results Interpretation Result Diagram: 03/29/17213703/29/172137 Test 03/29/17 21:38 03/29/17 22:07 White Blood Count 9.6th/mm3 (3.8-10.1) Red Blood Count 4.40mil/mm3 (3.90-5.20) Hemoglobin 12.9g/dL (12.0-15.6) Hematocrit 38.5% (35.0-46.0) Mean Corpuscular Volume 87.5fL (81-100) Mean Corpuscular Hemoglobin 29.3pg (27.0-35.0) Mean Corpuscular Hemoglobin Concent 33.5% (32.0-37.0) Red Cell Distribution Width 13.5% (12.3-15.4) Platelet Count 198bil/L (150-400) Neutrophils (%) (Auto) 61.7% (40-74) Lymphocytes (%) (Auto) 28.5% (14-46) Monocytes (%) (Auto) 5.8% (4-12) Eosinophils (%) (Auto) 3.5% (0-5) Basophils (%) (Auto) 0.3% (0-3) Sodium Level 138mEq/L (134-144) Potassium Level 3.8mEq/L (3.5-5.2) Chloride Level 103mEq/L (97-108) Carbon Dioxide Level 22mmol/L (18-29) Blood Urea Nitrogen 12mg/dL (6-24) Creatinine 0.40mg/dL (0.57-1.00) Estimat Glomerular Filtration Rate 247mL/min (>59) Glucose Level 97mg/dL (60-99) Calcium Level 9.2mg/dL (8.5-10.1) Total Bilirubin 0.3mg/dL (0.0-1.2) Aspartate Amino Transf (AST/SGOT) 14U/L (0-50) Alanine Aminotransferase (ALT/SGPT) 22U/L (0-32) Alkaline Phosphatase 54U/L (25-150) Total Protein 6.9g/dL (6.4-8.4) Albumin 4.2g/dL (3.4-5.0) Monoscreen Negative (Negative) Hold Larios Top Tube Received (Received) X-Ray Chest Interpretation Chest Xray Interpretation: IMPRESSION: No radiographic evidence of acute cardiopulmonary pathology. Dictated by: Riley Fish M.D. on 03/29/2017 at 21:59 View: Portable, AP & lat Interpretation / Wet Read by: Interpret - Radiologist Re-Eval/Medical Decision Med Decision/Clinical Course Step and Denali tests negative. afebrile and VS wnl here. No elevation of WBC. with exudate less likely to be post-intubation sore throat. No signs of surgical /wound infection. Most likely viral pharyngitis. Pt reassured and advised to f/ u early next week with PCP. Time of Eval: 23:15 Patient Status: Condition improved Re-Evaluation/Progress Note: Discussed lab results and plan for discharge. Pt understands and agrees. Counseled Regarding: Diagnosis, Lab results, Need for follow-up, When/why to return to ED Discharge & Departure Primary Impression: Viral pharyngitis Additional Impression: Cough Disposition: Home Discharge Condition All VS Reviewed: Yes Condition: Improved Additional Instructions: Thank you for entrusting us with your care today. Your chest x ray did not show signs of pneumonia. Your labs did not show any sign of Denali or Strep throat. This is likely viral, which means there is not a medication for it. Take Tylenol and Ibuprofen as needed for fever and pain. Follow up with your primary care doctor in the next week. Return to the ER if you develop any new or worsening symptoms. Take it easy for the next few days and drink plenty of fluids. Referrals: Napoleon Mccormick MD (PCP) Scott Attestation Portions of this note were transcribed by Deena Ashby. I, Dr. Shannon personally performed the history, physical exam and medical decision-making; I reviewed and confirmed the accuracy of the information in the transcribed note. Signed by: Scott Cordero, 03/29/2017. copies to: Napoleon Mccormick MD, Gary R DO Mar 29, 2017 20:30 DEENA ASHBY Mar 29, 2017 21:21
[2017-03-29 21:53] LABS: BASOPHILS % (AUTO) 0.3 % (0-3); EOSINOPHILS % (AUTO) 3.5 % (0-5); MONOCYTES % (AUTO) 5.8 % (4-12); Mean Corpuscular Hemoglobin 29.3 pg (27.0-35.0); Mean Corpuscular Volume 87.5 fL (81-100); NEUTROPHILS % (AUTO) 61.7 % (40-74); Platelet Count 198 bil/L (150-400)
--- NOTE | 2017-03-29 22:03 | DRSVH ---
PROCEDURE: X-RAY CHEST, TWO VIEWS ([id number]) INDICATIONS: cough TECHNIQUE: 2 views of the chest were acquired. COMPARISON: [facility], CR, XR CHEST 2VW, 06/30/2016, 20:05. [facility], CR , XR CHEST 2VW, 05/17/2016, 22:30. [facility], CR, XR CHEST 2VW, 02/08/2016, 14:13. [facility], CR, XR CHEST 2VW, 05/04/2015, 15:30. FINDINGS: Surgical changes and devices: None. Lungs and pleura: No pleural effusions or pneumothorax. Lungs are clear. Mediastinum: Mediastinal contours are normal. Heart size is normal. Bones and chest wall: No suspicious bony abnormalities. Soft tissues appear unremarkable. IMPRESSION: No radiographic evidence of acute cardiopulmonary pathology. Dictated by: Riley Fish M.D. on 03/29/2017 at 21:59 Approved by: Riley Fish M.D. on 03/29/2017 at 22:01
== END 2017-03-29 23:44 | disposition home or self-care (01) ==
LOC: SED 19:28
DX: J02.9 Acute pharyngitis, unspecified (principal); J45.909 Unspecified asthma, uncomplicated; F17.200 Nicotine dependence, unspecified, uncomplicated; Z87.01 Personal history of pneumonia (recurrent); Z87.442 Personal history of urinary calculi; Z88.0 Allergy status to penicillin; Z88.2 Allergy status to sulfonamides; Z88.8 Allergy status to other drugs, medicaments and biological substances; Z91.040 Latex allergy status

== ENCOUNTER 2017-04-17 06:36 | Emergency (ER) | payer MEDICARE, MEDICAID ==
[~2017-04-17] VITALS: Ht 160 cm; Wt 78.2 kg
[2017-04-17 06:41] VITALS: BP 134/67; PULSE 73; RESP 16; O2SAT 97
--- NOTE | 2017-04-17 06:46 | ED.REPORT ---
HPI-Headache Date of Service Apr 17, 2017 ED Provider: Ana María Barrera MD The pt is a 47 y/o female w/ a hx of multiple sclerosis, anxiety, and hepatitis C presenting to the ED complaining of a headache. The pt reports the pain beginning yesterday but becoming much more severe this morning. The pain is localized to the L side of the top of her head, a pressure, and feels different than anything she has had before. She receives Botox for her usual migraines. The pt vomited this morning. She also reports chronic chills due to her MS. Denies a fever. The pt has used Lyrica and Ibuprofen at 0000 to help with her symptoms. Her neurologist at [facility] is Dr. Iverson. [phone] Nursing Notes Stated Complaint: SEVERE PAIN IN SKULL,DIZZY,NAUSEOUS Chief Complaint: Headache Nursing Notes Reviewed: Yes Allergies: Coded Allergies: Sulfa (Sulfonamide Antibiotics) (Verified Allergy, Severe, TONGUE SWELLS, 04/17/17) iodine (Verified Allergy, Severe, 04/17/17) latex (Verified Allergy, Severe, PLASTIC BANDAIDS,REDNESS,HIVES, 04/17/17) Penicillins (Verified Allergy, Unknown, TONGUE SWELLING, 04/17/17) Scheduled Bupropion (Bupropion) 100 Mg Tablet 100 MG PO BID Dextroamphetamine/Amphetamine (Adderall) 10 Mg Tablet 10 MG PO DAILY Montelukast (Montelukast) 10 Mg Tablet 10 MG PO HS Sertraline HCl (Sertraline) 100 Mg Tablet 100 MG PO DAILY Triamcinolone Acet (Triamcinolone Acetonide Cream) 1 Applic/0.25 Gm Cr 1 APPLIC EXT BID Scheduled PRN Albuterol Sulfate (Ventolin HFA Inhaler) 200 Puff/18 Gm Inhaler 1 PUFF INH Q4 PRN PRN For Wheezing Alprazolam (Alprazolam) 1 Mg Tablet 1 MG PO TID PRN PRN For Anxiety Cyclobenzaprine (Cyclobenzaprine) 5 Mg Tablet 5 MG PO TID PRN PRN Spasm Miscellaneous Medications Fluticasone Propionate (Flonase Allergy Relief) 50 Mcg/Actuation [place].susp 9.9 ML NS Glatiramer Acetate (Copaxone) 40 Mg/1 Ml Syringe 40 MG SQ Levocetirizine Dihydrochloride (Xyzal) 5 Mg Tablet 5 MG PO General Time Seen by MD: 06:45 Chief Complaint Headache Hx Obtained From: Patient Arrived By: Walk-in Sudden in Onset?: Yes Onset Occurred: Yesterday Symptom Duration: Since onset Recent Healthcare: No recent hospitalization, Recent doctor visit Similar Sx Previous: No Past Medical History Past Medical History Notes: PCP: Napoleon Mccormick Past Medical History Hx kidney stones Pneumonia Hep C multiple sclerosis hiatal hernia anxiety Reports: Asthma Past Surgical History Excision of left thigh seroma and cavity on 07/31/2016 Knee surgery x4 Kidney stone Tubal ligation Ablation 11 Laparocolotomies for endometrioses Mass removal 03/2017 Reports: Cholecystectomy Family History Noncontributory Smoking History Current Every Day Smoker Social History Alcohol Use: Denies alcohol use Drug Use: Denies drug use Other Social History: Good social support, Local resident Occupation live with daughter no work or school Ambulatory Status Independent Review of Systems Chronic chills due to MS; Constitutional: Denies: Fever GI: Reports: Nausea, Vomiting Neurologic: Reports: Headache Complete sys rev & neg: except as marked. Physical Exam Initial Vital Signs Vital Signs (First) Date Time Temp Pulse Resp B/P Pulse Ox O2 Delivery O2 Flow Rate FiO2 04/17/17 06:41 36.7 73 16 134/67 97 Room Air Initial VS: Reviewed ENT: Mucous membranes moist, Conjunctiva normal, No scleral icterus Respiratory: Breath sounds normal, Clear to auscultation, No respiratory distress Cardiovascular: Regular rate & rhythm, Heart sounds normal, Intact distal pulses Extremities: Vascular intact, Neuro intact, No swelling, No tenderness Skin: Warm, Dry, No cyanosis Psychiatric: Mood/affect normal, Behavior normal, Normal thought content General/Constitutional: Awake, Alert Head / Eyes: Atraumatic, Normocephalic, PERRL No signs of skin lesions on scalp Neck: Atraumatic, Supple, Full range of motion Neurologic: Oriented X3, Speech NL Interpretation & Diagnostics Lab Results Interpretation Test 04/17/17 07:40 04/17/17 07:45 Hold Urine Received (Received) Hold Purple Top Tube Received (Received) Hold Blue Top Tube Received (Received) Hold [place] Top Tube Received (Received) Hold Larios Top Tube Received (Received) CT Head Interpretation IMPRESSION: 1. No acute intracranial abnormality. Concordant with preliminary interpretation. Dictated by: Mandeep Dawn M.D. on 04/17/2017 at 9:10 Approved by: Mandeep Dawn M.D. on 04/17/2017 at 9:11 Study: Head CT no contrast Interpretation / Wet Read by: Interpret - Radiologist Re-Eval/Medical Decision Source of Hx: Old records Re-Evaluation/Progress : Time of Eval: 09:10 Re-Evaluation/Progress Note: Rechecked pt and discussed CT results. The pt reports the initial medication helping slightly and told the nurse her pain level has decreased to a 7/10. Consultation : Referral / Consult Name: Sue Iverson MD Consulted With: Neurology Call Returned at: 09:42 Note: Discussed pt's case w/ Dr. Iverson. He says there is no reason to be alarmed concerning the MS and she should follow up with her headache doctor w/ any further concerns. Counseled Regarding: Diagnosis, Lab results, Need for follow-up, When/why to return to ED Discharge & Departure Impression: Primary Impression: Headache Disposition: Home Discharge Condition All VS Reviewed: Yes Condition: Stable Additional Instructions: You came in complaining of a headache that was severe, possibly the worst of your life, without fever, and feeling different than your usual migraines. We did a CT scan of your brain that showed no concerning findings, specifically no bleeding inside your brain. Your exam does not suggest meningitis or other acute infection. You do not have any indication for shingles or other skin changes that could cause headache. I briefly reviewed all of our findings with your MS physician, he did not have any additional recommendations. If you are continuing to have headache or head pain issues I would encourage you to follow up with your headache specialist I hope you are able to go home and get some sleep, and feel better when you wake up I wish you the best Referrals: Napoleon Mccormick MD (PCP) Sue Iverson MD Scribe Attestation Portions of this note were transcribed by Monroe Vera. I, Dr. Barrera personally performed the history, physical exam and medical decision-making; I reviewed and confirmed the accuracy of the information in the transcribed note. copies to: Napoleon Mccormick MD; Sue Iverson MD, Shawna L MD Apr 17, 2017 06:46 Monroe Vera Apr 17, 2017 07:14
[2017-04-17] MEDS ORDERED: 0.9% Sodium Chloride 1,000 ML IV ONE (07:08)
[2017-04-17] MEDS ORDERED: Ondansetron 2 mg/mL 2 mL Inj IVPUSH ONE (07:10)
[2017-04-17] MEDS ORDERED: HYDROmorphone 0.5 mg/0.5 mL iSecure Syringe IVPUSH ONE (08:25)
--- NOTE | 2017-04-17 09:13 | DRSVH ---
PROCEDURE: CT BRAIN WITHOUT CONTRAST ([id number]) INDICATIONS: worst headache of life TECHNIQUE: Noncontrast 4.5 mm thick angled axial sections acquired from the foramen magnum to the vertex, with c oronal reformats. COMPARISON: [facility], CT, BRAIN W/O CONTRAST, 11/12/2007, 8:08. FINDINGS: Image quality: Excellent. CSF spaces: Basal cisterns are patent. No extra-axial fluid collections. Ventricles are normal in size and shape. Brain: No intracranial hemorrhage, mass, or mass effect. Dhillon-white matter interface is preserved. Skull and face: Calvarium and visualized facial bones are intact, without suspicious lesions. Sinuses: Visualized sinuses and mastoids are clear. IMPRESSION: 1. No acute intracranial abnormality. Concordant with preliminary interpretation. Dictated by: Mandeep Dawn M.D. on 04/17/2017 at 9:10 Approved by: Mandeep Dawn M.D. on 04/17/2017 at 9:11
[2017-04-17 09:52] VITALS: BP 104/47; PULSE 84; RESP 15; O2SAT 97
[2017-04-17] MEDS ORDERED: ONDA4TAB6 PO (10:12)
[2017-04-17 10:38] VITALS: BP 108/50; PULSE 73; RESP 16; O2SAT 100
== END 2017-04-17 10:40 | disposition home or self-care (01) ==
LOC: SED 06:36
DX: R51 Headache (principal); R11.2 Nausea with vomiting, unspecified; R68.83 Chills (without fever); J45.909 Unspecified asthma, uncomplicated; F41.9 Anxiety disorder, unspecified; F17.200 Nicotine dependence, unspecified, uncomplicated; Z87.01 Personal history of pneumonia (recurrent); Z87.442 Personal history of urinary calculi; Z98.890 Other specified postprocedural states; Z88.1 Allergy status to other antibiotic agents; Z88.2 Allergy status to sulfonamides; Z88.8 Allergy status to other drugs, medicaments and biological substances; Z91.040 Latex allergy status
CPT/HCPCS: 70450; 96361; 96374; 96375; 99285; J1170; J1885; J2405; J7030